=== PATIENT | female | born 1935 | race Caucasian/White ===

== ENCOUNTER → 2016-09-06 | Emergency (ER) | payer MEDICARE, BC ==
--- NOTE | 2016-09-06 13:37 | CT ---
BRAIN CT WITHOUT IV CONTRAST HISTORY: A 80-year-old female with a head injury following a fall. FINDINGS: There is minimal focal soft tissue swelling over the right frontal bone region. There are some pierce ges of bilateral atrophy. No focal mass or midline shift. No intraaxial or extraaxial hemorrhage. The sinuses are clear. Minimal partial inferior right mastoid opacification. IMPRESSION: Mild atrophy and chronic white matter ischemic change. No mass, hemorrhage, or other acute process. POS: [facility]
--- NOTE | 2016-09-06 13:38 | RAD ---
RIGHT HAND THREE VIEWS HISTORY: Fall. FINDINGS: There is a transversely oriented fracture of the base of the proximal phalanx of the little finger. 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 Calcifications in the triangular fiber cartilage are seen. IMPRESSION: Acute nondisplaced fracture of the proximal phalanx of the little finger. POS: [facility]
== END ==
LOC: BURERS 12:00
DX: S09.90XA Unspecified injury of head, initial encounter (principal); S62.616A Displaced fracture of proximal phalanx of right little finger, initial encounter for closed fracture; I10 Essential (primary) hypertension; J44.9 Chronic obstructive pulmonary disease, unspecified; Z79.82 Long term (current) use of aspirin; W18.30XA Fall on same level, unspecified, initial encounter
CPT/HCPCS: 29130; 70450; Q4049